=== PATIENT | male | born 1995 | race Caucasian/White ===

== ENCOUNTER 2017-04-21 17:40 | Inpatient (IN) | payer BC, OTHER ==
[~2017-04-21] VITALS: Ht 177.8 cm; Wt 69.4 kg
[2017-04-21] MEDS ORDERED: VALIUM5 MG PO (18:21)
[2017-04-21] MEDS ORDERED: NEURONTIN 300300 M1 PO (18:23)
[2017-04-21] MEDS ORDERED: IBUPROFEN 800800 M1 PO (18:24)
[2017-04-21] MEDS ORDERED: ENDOCET 10-3251 EACH PO (18:27)
[2017-04-21] MEDS ORDERED: MIRALAX17 GM PO (18:29)
[2017-04-21] MEDS ORDERED: LYRICA 50 MG50 MG PO (18:31)
[2017-04-21 20:55] VITALS: BP 114/65
[2017-04-22 05:05] LABS: HEMATOCRIT 28.7 % (42.0-52.0); HEMOGLOBIN 9.9 gm/dL (14.0-18.0); MCH 30.6 pg (26.0-34.0); MCHC 34.4 g/dL (28.0-37.0); MCV 88.9 fL (80.0-100.0); MPV 7.7 fl. (7.2-11.1); RBC 3.23 mil/uL (4.50-6.00); RDW-CV 13.4 % (10.5-14.5); WBC 9.5 thou/uL (4.0-11.0)
[2017-04-22 05:26] LABS: CALCIUM 9.1 mg/dL (8.5-10.1); CREATININE 0.7 mg/dL (0.6-1.3); POTASSIUM 4.3 mmol/L (3.5-5.1)
[2017-04-22 08:12] VITALS: BP 118/58
[2017-04-22 19:30] VITALS: BP 118/65
[2017-04-23 07:51] VITALS: BP 126/74
[2017-04-23 20:15] VITALS: BP 117/68
[2017-04-24 07:30] VITALS: BP 114/69
[2017-04-24 20:12] VITALS: BP 119/66
[2017-04-25 11:00] VITALS: BP 103/54
[2017-04-25 20:35] VITALS: BP 119/59
[2017-04-26 08:24] VITALS: BP 101/47
[2017-04-26 21:39] VITALS: BP 112/51
[2017-04-27 07:30] VITALS: BP 112/54
[2017-04-27 19:49] VITALS: BP 108/52
[2017-04-28 07:38] VITALS: BP 98/46
[2017-04-28 20:08] VITALS: BP 107/58
[2017-04-29 07:38] VITALS: BP 99/58
[2017-04-29 20:00] VITALS: BP 123/48
[2017-04-30 08:02] VITALS: BP 98/48
[2017-04-30 21:00] VITALS: BP 114/47
[2017-05-01 07:30] VITALS: BP 104/53
[2017-05-01 20:00] VITALS: BP 121/60
[2017-05-02 08:09] VITALS: BP 93/47
[2017-05-02 19:12] LABS: HEMATOCRIT 33.3 % (42.0-52.0); HEMOGLOBIN 10.8 gm/dL (14.0-18.0); MCH 29.2 pg (26.0-34.0); MCHC 32.4 g/dL (28.0-37.0); MPV 7.7 fl. (7.2-11.1); RBC 3.7 mil/uL (4.50-6.00); RDW-CV 13.9 % (10.5-14.5); WBC 4.8 thou/uL (4.0-11.0)
[2017-05-02 19:21] LABS: CALCIUM 8.8 mg/dL (8.5-10.1); CREATININE 0.8 mg/dL (0.6-1.3); POTASSIUM 3.8 mmol/L (3.5-5.1)
[2017-05-02 20:40] VITALS: BP 118/61
[2017-05-03 04:21] LABS: HEMATOCRIT 32.4 % (42.0-52.0); HEMOGLOBIN 10.8 gm/dL (14.0-18.0); MCH 29.9 pg (26.0-34.0); MCHC 33.3 g/dL (28.0-37.0); MCV 89.7 fL (80.0-100.0); MPV 8.1 fl. (7.2-11.1); RBC 3.62 mil/uL (4.50-6.00); RDW-CV 13.7 % (10.5-14.5); WBC 5.3 thou/uL (4.0-11.0)
[2017-05-03 04:50] LABS: CALCIUM 8.8 mg/dL (8.5-10.1); CREATININE 0.7 mg/dL (0.6-1.3); POTASSIUM 3.8 mmol/L (3.5-5.1)
[2017-05-03 08:08] VITALS: BP 107/62
[2017-05-03 20:32] VITALS: BP 110/79
[2017-05-04 04:17] LABS: HEMATOCRIT 32.8 % (42.0-52.0); HEMOGLOBIN 10.8 gm/dL (14.0-18.0); MCH 29.5 pg (26.0-34.0); MCHC 32.9 g/dL (28.0-37.0); MCV 89.6 fL (80.0-100.0); MPV 8.2 fl. (7.2-11.1); RBC 3.66 mil/uL (4.50-6.00); RDW-CV 13.9 % (10.5-14.5); WBC 5.7 thou/uL (4.0-11.0)
[2017-05-04 04:29] LABS: CALCIUM 8.9 mg/dL (8.5-10.1); CREATININE 0.7 mg/dL (0.6-1.3); POTASSIUM 4.1 mmol/L (3.5-5.1)
[2017-05-04 08:30] VITALS: BP 104/50
[2017-05-04 20:00] VITALS: BP 115/55
[2017-05-05 04:27] LABS: HEMATOCRIT 33.7 % (42.0-52.0); HEMOGLOBIN 11.1 gm/dL (14.0-18.0); MCH 29.2 pg (26.0-34.0); MCHC 32.8 g/dL (28.0-37.0); MCV 89.1 fL (80.0-100.0); MPV 8.7 fl. (7.2-11.1); RBC 3.79 mil/uL (4.50-6.00); RDW-CV 13.9 % (10.5-14.5); WBC 6.5 thou/uL (4.0-11.0)
[2017-05-05 04:42] LABS: CREATININE 0.7 mg/dL (0.6-1.3); POTASSIUM 4.2 mmol/L (3.5-5.1)
[2017-05-05 08:00] VITALS: BP 105/54
[2017-05-05] MEDS ORDERED: KEFLEX500 M1 PO (12:01)
[2017-05-05 14:28] VITALS: BP 105/54
[2017-05-05 17:00] VITALS: BP 105/54
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
== END 2017-05-05 17:00 | disposition home health service (06) | DRG 552 ==
LOC: M.REH 17:40 → EDBD 19:12 → M.REH 19:12
PROVIDERS: Family Medicine; Internal Medicine; ADMIT Physical Medicine & Rehabilitation
DX: S32.019A Unspecified fracture of first lumbar vertebra, initial encounter for closed fracture (principal); S22.089A Unspecified fracture of T11-T12 vertebra, initial encounter for closed fracture; S27.322A Contusion of lung, bilateral, initial encounter; J93.9 Pneumothorax, unspecified; T81.31XA Disruption of external operation (surgical) wound, not elsewhere classified, initial encounter; K59.00 Constipation, unspecified; D64.9 Anemia, unspecified; V89.2XXA Person injured in unspecified motor-vehicle accident, traffic, initial encounter; Y93.I9 Activity, other involving external motion; Y92.89 Other specified places as the place of occurrence of the external cause; Y99.8 Other external cause status; Z98.1 Arthrodesis status; Z23 Encounter for immunization